=== PATIENT | male | born 1985 | race Caucasian/White ===

== ENCOUNTER 2021-04-13 22:27 | Observation (INO) ==
[2021-04-13] MEDS ORDERED: SODIUM CHLORIDE 0.9% 1000ML 1,000 ML IV STA (23:59)
[2021-04-13] MEDS ORDERED: ONDANSETRON INJ 2 MG/ML 2 ML VIAL IV STA (23:59)
[2021-04-13] MEDS ORDERED: KETOROLAC 30 MG/ML VIAL IV STA (23:59)
--- NOTE | 2021-04-14 00:03 | Emergency Department Note ---
History of Present Illness General Chief complaint: Abdominal Pain Stated complaint: ABD PAIN Time Seen by Provider: 04/13/21 23:54 History of Present Illness Maximum Pain Intensity: 7 35-year-old male who presents to the ED with a chief complaint of sharp pain in the epigastric and right upper quadrant. She also reports nausea and vomiting. Symptoms started around noon today. He states that he had some fried steak for lunch and also a bologna sandwich for dinner. He states that he has had similar symptoms in the past year once or twice. He never really had it thoroughly checked. 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 Denies any back pains. No urinary symptoms. No change in his bowels. No other complaints. Nothing makes his is worse. Home Medications Medication Instructions Recorded Confirmed Type hydrochlorothiazide 12.5 mg capsule 12.5 mg PO DAILY 04/13/21 04/13/21 History omeprazole 20 mg tablet,delayed 20 mg PO DAILY 04/13/21 04/13/21 History release Allergies Allergy/AdvReac Type Severity Reaction Status Date / Time No Known Allergies Allergy Unverified 04/13/21 23:28 Past Med/Surg History Social History Smoking Status: Never smoker Preferred Language: Armenian Feels Safe at Home: Yes Review of Systems A total of 10 systems reviewed and were otherwise negative Physical Exam Vital Signs Vital Signs - 24 hr 04/13/21 22:29 04/13/21 23:52 04/14/21 00:00 Temperature 36.5 C Temperature Source Temporal Artery Scan Pulse Rate 87 76 70 Pulse Rate [Apical] Pulse Rate from SpO2 Sensor 75 Respiratory Rate 18 18 15 Respiratory Effort / Characteristics Non-Labored Spontaneous Respiratory Depth Normal Respiratory Pattern Regular Blood Pressure 138/84 Blood Pressure [Right Arm] Blood Pressure Mean 102 Blood Pressure Mean [Right Arm] Blood Pressure Position Sitting Pulse Oximetry 95 99 98 Oxygen Delivery Method Room Air Sepsis Recent Fever Within 48 Hours No Sepsis New/Unexplained Change in Mental Status N/A Sepsis Action Taken by Nursing No Action Required 04/14/21 00:19 04/14/21 01:38 Temperature Temperature Source Pulse Rate 65 Pulse Rate [Apical] 72 Pulse Rate from SpO2 Sensor Respiratory Rate 17 16 Respiratory Effort / Characteristics Respiratory Depth Respiratory Pattern Blood Pressure Blood Pressure [Right Arm] 126/82 Blood Pressure Mean Blood Pressure Mean [Right Arm] 96 Blood Pressure Position Pulse Oximetry 98 97 Oxygen Delivery Method Room Air Sepsis Recent Fever Within 48 Hours Sepsis New/Unexplained Change in Mental Status Sepsis Action Taken by Nursing CONSTITUTIONAL/VITAL SIGNS: Reviewed / noted above. GENERAL: Non-toxic in appearance. INTEGUMENTARY: Warm, dry, and [place]. HEAD: Normocephalic. EYES: without scleral icterus or trauma. ENT/OROPHARYNX: clear and moist. LYMPHADENOPATHY/NECK: Is supple without lymphadenopathy or meningismus. RESPIRATORY: Clear to auscultation bilaterally. No increased work of breathing. CARDIOVASCULAR: Regular rate and rhythm. GI/ABDOMEN: Soft and tender in the epigastric and right upper quadrant. No organomegaly or pulsatile mass. EXTREMITIES: Warm and well perfused. BACK: No CVA tenderness. NEUROLOGICAL: Intact without focal deficits. PSYCHIATRIC: normal affect. MUSCULOSKELETAL: Normally developed with good muscle tone. TRIAGE NURSING DOCUMENTATION REVIEWED. Course Administered Medications Discontinued Medications Sodium Chloride (Nss 1000ml) 1,000 mls @ 999 mls/hr IV .Q1H1M STA Stop: 04/14/21 00:59 Last Infusion: 04/14/21 01:27 Dose: 0 mls/hr Documented by: [id number] Admin: 04/14/21 00:12 Dose: 999 mls/hr Documented by: [id number] Ketorolac Tromethamine (Ketorolac 30 Mg/Ml Vial) 30 mg IV NOW STA Stop: 04/14/21 00:00 Last Admin: 04/14/21 00:08 Dose: 30 mg Documented by: [id number] Ondansetron HCl (Ondansetron Inj 2 Mg/Ml 2 Ml Vial) 4 mg IV NOW STA Stop: 04/14/21 00:00 Last Admin: 04/14/21 00:09 Dose: 4 mg Documented by: [id number] Medical Decision Making Differential Diagnosis Differential considered: pancreatitis, hepatitis, acute cholecystitis, AAA, UTI, pyelonephritis, kidney stones, appendicitis, diverticulitis, shingles, bowel obstruction, mesenteric ischemia, intussusception,hernia, testicular torsion. Medical Records Attestation: I reviewed the patient's medical records. Home Medications Current Medication List: was personally reviewed by me Laboratory Data Attestation: I reviewed the patient's lab results. Result diagrams: 04/14/21 00:00 04/14/21 00:00 Lab Results 04/14/21 04/14/21 Range/Units 00:00 00:00 WBC 14.88 H (4.8-10.8) K/uL RBC 4.76 (4.7-6.1) M/uL Hgb 14.4 (14.0-18.0) g/dL Hct 42.6 (42-52) % MCV 89.5 (80-100) fL MCH 30.3 (25-34) pg MCHC 33.8 (32-36) g/dL RDW Std Deviation 41.7 (36.4-46.3) fL RDW Coeff of Rose Mary 12.6 (11.5-14.5) % Plt Count 317 (130-400) K/uL MPV 10.3 (7.4-10.4) fL Immature Gran % (Auto) 0.2 % Neut % (Auto) 91.8 % Lymph % (Auto) 5.4 % [place] % (Auto) 2.5 % Eos % (Auto) 0.0 % Baso % (Auto) 0.1 % Neut # (Auto) 13.66 H (1.4-6.5) K/uL Lymph # (Auto) 0.80 L (1.2-3.4) K/uL [place] # (Auto) 0.37 (0.11-0.59) K/uL Eos # (Auto) 0.00 (0-0.5) K/uL Baso # (Auto) 0.02 (0-0.2) K/uL Immature Gran # (Auto) 0.03 H (0.00-0.02) K/uL Sodium 137 (136-145) mmol/L Potassium 3.1 L (3.5-5.1) mmol/L Chloride 101 (98-107) mmol/L Carbon Dioxide 29 (21-32) mmol/L Anion Gap 7.0 (3-11) BUN 8 (7-18) mg/dl Creatinine 0.99 (0.6-1.4) mg/dl Est Cr Clr Drug Dosing Not Reportable Est GFR ( Amer) 114.7 ml/min Est GFR (Non-Af Amer) 99.0 ml/min BUN/Creatinine Ratio 8.4 L (10-20) Glucose 136 H (70-99) mg/dl Calcium 9.2 (8.5-10.1) mg/dl Total Bilirubin 0.7 (0.2-1) mg/dl AST 38 H (15-37) U/L ALT 53 (12-78) U/L Alkaline Phosphatase 76 (45-117) U/L Total Protein 8.5 H (6.4-8.2) gm/dl Albumin 4.3 (3.4-5.0) gm/dl Globulin 4.2 H (2.5-4.0) gm/dl Albumin/Globulin Ratio 1.0 (0.9-2) Lipase 72 L (73-393) U/L Imaging Data Radiologist's Impression: Per [facility]: There is a hydropic gallbladder with gallstones and sludge and a positive ultrasonic Diaz sign with associated pericholecystic fluid suggesting acute cholecystitis. MDM Narrative Patient presents to the ED with right upper quadrant of epigastric abdominal pain that started around noon today after eating some fried chicken. He had some associated nausea and vomiting. Vital signs are normal. The patient's white blood cell count was 14.8. Chemistry panel was unremarkable. Gallbladder ultrasound shows findings suggestive of acute cholecystitis. The patient was told the results. He was treated with IV fluids, IV Toradol and IV Zofran. He was also given IV Zosyn. I did speak with Dr. De La Garza from surgery. She will see the patient for further evaluation and care. Impression & Plan Acute calculous cholecystitis Discharge Plan Visit Data Chief Complaint: Abdominal Pain Stated Complaint: ABD PAIN ED Provider: Obie Ba Discharge Problem: Acute calculous cholecystitis Patient Disposition: Being Evaluated by Surgeon Forms Stand Alone Forms: My [facility] Prescriptions Prescriptions: No Action hydrochlorothiazide 12.5 mg Capsule 12.5 mg PO DAILY RF: 0 omeprazole 20 mg Tablet,Delayed Release (Dr/Ec) 20 mg PO DAILY RF: 0 Referrals Referrals: Mary Trejo [Primary Care Provider] -
[2021-04-14 00:17] LABS: Basophils # (auto) 0.02 K/uL (0-0.2); Basophils % (auto) 0.1 %; Hematocrit (blood only) 42.6 % (42-52); Hemoglobin 14.4 g/dL (14.0-18.0); Immature Granulocytes # (auto) 0.03 K/uL (0.00-0.02); Immature Granulocytes % (auto) 0.2 %; Lymphocytes % (auto) 5.4 %; Mean Corpuscular Hemoglobin 30.3 pg (25-34); Mean Corpuscular Hgb Conc 33.8 g/dL (32-36); Mean Corpuscular Volume 89.5 fL (80-100); Mean Platelet Volume 10.3 fL (7.4-10.4); Monocytes # (auto) 0.37 K/uL (0.11-0.59); Monocytes % (auto) 2.5 %; Neutrophils # (auto) 13.66 K/uL (1.4-6.5); Neutrophils % (auto) 91.8 %; Platelet Count 317 K/uL (130-400); RDW Coefficient of Variation 12.6 % (11.5-14.5); RDW Standard Deviation 41.7 fL (36.4-46.3); Red Blood Count 4.76 M/uL (4.7-6.1); White Blood Count 14.88 K/uL (4.8-10.8)
[2021-04-14 00:35] LABS: Alanine Aminotransferase 53 U/L (12-78); Albumin Level 4.3 gm/dl (3.4-5.0); Aspartate Aminotransferase 38 U/L (15-37); BUN Creatinine Ratio 8.4 (10-20); Blood Urea Nitrogen 8 mg/dl (7-18); Calcium 9.2 mg/dl (8.5-10.1); Carbon Dioxide 29 mmol/L (21-32); Chloride 101 mmol/L (98-107); Est GFR (African American) 114.7 ml/min; Glucose 136 mg/dl (70-99); Lipase 72 U/L (73-393); Potassium 3.1 mmol/L (3.5-5.1); Sodium 137 mmol/L (136-145)
[2021-04-14 00:38] LABS: Alkaline Phosphatase 76 U/L (45-117); Bilirubin,Total 0.7 mg/dl (0.2-1); Globulin 4.2 gm/dl (2.5-4.0); Total Protein 8.5 gm/dl (6.4-8.2)
[2021-04-14] MEDS ORDERED: PIPERACILL/TAZOBAC CONSULT ACTIVE PRN (01:52)
[2021-04-14] MEDS ORDERED: PIPERACILLIN/TAZOBACTAM 4.5 GM/120 ML BAG IV ONE (01:52)
[2021-04-14] MEDS ORDERED: ONDANSETRON INJ 2 MG/ML 2 ML VIAL IV STA (04:00)
[2021-04-14] MEDS ORDERED: ONDANSETRON INJ 2 MG/ML 2 ML VIAL IV PRN ×2 (04:55→10:08)
[2021-04-14] MEDS ORDERED: oxyCODONE/ACETAMINOPHEN 5mg/325mg TAB PO PRN (04:55)
[2021-04-14] MEDS ORDERED: MoRPHine SULFATE 4 MG/ML 1 ML CARP\\VIAL IV PRN (04:55)
[2021-04-14] MEDS ORDERED: MoRPHine SULFATE 2 MG/ML CARP IV PRN (04:55)
[2021-04-14] MEDS: LACTATED RINGER'S 1,000 ML IV SCH ×2 (05:22→15:12)
--- NOTE | 2021-04-14 07:07 | Ultrasound Report ---
ULTRASOUND RIGHT UPPER QUADRANT ABDOMEN CLINICAL HISTORY: Right upper quadrant abdominal pain. Vomiting. COMPARISON STUDY: No priors. TECHNIQUE: Real-time, grayscale, and color flow sonography of the right upper quadrant of the abdomen was performed. Images are reviewed in the transverse and longitudinal planes. FINDINGS: Liver: The liver is enlarged and demonstrates heterogeneously increased echotexture consistent with h epatic steatosis. There is no intrahepatic biliary ductal dilatation. The main portal vein is patent. Gallbladder: The gallbladder is distended. There is biliary sludge and gallstones. The gallbladder wa ll is thickened and edematous measuring up to 5 mm, with trace pericholecystic fluid. A sonographic M urphy's sign is reportedly present. Foci of adenomyomatosis are suggested. The common bile duct measu res up to 0.5 cm in diameter. Pancreas: Visualized portions of the pancreatic head are normal in appearance. The majority of the pa ncreas was not visualized due to overlying bowel gas. Right kidney: Survey images of the right kidney demonstrate normal size and echotexture. There is no hydronephrosis. Ascites: None. IMPRESSION: 1. Cholelithiasis and biliary sludge with sonographic evidence of acute cholecystitis. Surgical consu ltation is advised. 2. Hepatomegaly and hepatic steatosis. ACT 112: Negative or not required by law. Electronically signed by: Adan Treadwell M.D. 04/14/2021 7:06 AM
[2021-04-14] MEDS: AMPICILLIN/SULBACTAM SOD 3,000 MG in 0.9 % SODIUM CHLORIDE 100 ML IV SCH ×3 (07:34→20:14)
--- NOTE | 2021-04-14 08:00 | History & Physical Report ---
Date of Service April 14, 2021 Assessment & Plan (1) Acute calculous cholecystitis: Plan: 35-year-old gentleman with acute cholecystitis. I discussed with him the risks and benefits of a laparoscopic, possible open cholecystectomy. Risks include: Bleeding, infection, injury to the surrounding structures including the common bile duct, leak, obstruction, diarrhea. We reviewed alternative treatments such as observation or antibiotics. All his questions were answered, and he is agreeable to proceed with laparoscopic cholecystectomy. We will take him to the operating room at the earliest convenience. Admission and Anticipated Discharge Date Admission Date: April 14, 2021 History of Present Illness Chief Complaint: Right upper quadrant pain, nausea, vomiting Primary Care Provider: [facility] 35-year-old man with multiple episodes of right upper quadrant pain and nausea in the past few weeks. Yesterday he developed right upper quadrant pain which is subsequently worsened to a 7 out of 10 after eating dinner. He states that the pain radiates to his back and right shoulder. This was accompanied by nausea and vomiting. He did have sweats and chills. He denies acholic stools, dark urine, pruritus. In the emergency room, white blood cell count is elevated, and ultrasound demonstrates signs of acute cholecystitis. Allergies Allergy/AdvReac Type Severity Reaction Status Date / Time No Known Allergies Allergy Unverified 04/13/21 23:28 Home Medications Medication Instructions Recorded Confirmed Type hydrochlorothiazide 12.5 mg capsule 12.5 mg PO DAILY 04/13/21 04/13/21 History omeprazole 20 mg tablet,delayed 20 mg PO DAILY 04/13/21 04/13/21 History release Past Med/Surg History Social History Smoking Status: Former smoker Second Hand Exposure: No; Do You Dip or Chew Tobacco: No; Tobacco Cessation Education Requested by Patient: No Hx Alcohol Use: No Hx Substance Use: No Preferred Language: Serbian Communication Ability: Effective Beliefs That Will Affect Care: None Current Living Situation: Other Current Living Situation Comment: [place] Feels Safe at Home: Yes Safety Concerns: Feels Safe At This Time Assistive Devices: Glasses Review of Systems Review of Systems: All systems reviewed & are unremarkable except as noted in Subjective Physical Exam Constitutional: WD/WN, vitals as above Eyes: PERRL, conjunctivae normal, anicteric sclerae Neck: trachea midline, no thyromegaly Respiratory: normal respiratory effort, lungs clear to auscultation Cardiovascular: RRR, no murmur, no edema Gastrointestinal (Abdomen): Inspection/Auscultation: abdomen normal to inspection Percussion/Palpation: + abdomen tender (Right upper quadrant/epigastrium) and abdomen soft; no guarding and abdomen not rigid Musculoskeletal: Extremities: no cyanosis and no clubbing Skin: no rashes, warm and dry Psychiatric: A+Ox3, euthymic affect Results & Data Results & Data ([facility]) Vital Signs (Past 12 Hours) Vital Signs Temp Pulse Pulse Pulse Pulse Resp BP 04/14/21 07:08 37.2 C 84 16 04/14/21 04:58 36.8 C 81 82 18 04/14/21 04:00 79 20 133/85 04/14/21 03:31 86 12 161/82 H 04/14/21 03:01 72 16 142/94 H 04/14/21 02:30 85 16 118/98 04/14/21 02:04 36.7 C 04/14/21 02:00 101 H 13 119/82 04/14/21 01:38 72 16 04/14/21 01:36 85 18 04/14/21 00:19 65 17 04/14/21 00:00 70 15 04/13/21 23:52 76 18 04/13/21 22:29 36.5 C 87 18 138/84 BP Pulse Ox 04/14/21 07:08 144/84 H 95 04/14/21 04:58 165/94 H 95 04/14/21 04:00 94 04/14/21 03:31 99 04/14/21 03:01 99 04/14/21 02:30 97 04/14/21 02:04 04/14/21 02:00 97 04/14/21 01:38 126/82 97 04/14/21 01:36 98 04/14/21 00:19 98 04/14/21 00:00 98 04/13/21 23:52 99 04/13/21 22:29 95 Laboratory Results 04/14/21 04/14/21 04/14/21 Range/Units 05:47 02:06 02:06 WBC (4.8-10.8) K/uL RBC (4.7-6.1) M/uL Hgb (14.0-18.0) g/dL Hct (42-52) % MCV (80-100) fL MCH (25-34) pg MCHC (32-36) g/dL RDW Std Deviation (36.4-46.3) fL RDW Coeff of Rose Mary (11.5-14.5) % Plt Count (130-400) K/uL MPV (7.4-10.4) fL Immature Gran % (Auto) % Neut % (Auto) % Lymph % (Auto) % [place] % (Auto) % Eos % (Auto) % Baso % (Auto) % Neut # (Auto) (1.4-6.5) K/uL Lymph # (Auto) (1.2-3.4) K/uL [place] # (Auto) (0.11-0.59) K/uL Eos # (Auto) (0-0.5) K/uL Baso # (Auto) (0-0.2) K/uL Immature Gran # (Auto) (0.00-0.02) K/uL Sodium (136-145) mmol/L Potassium (3.5-5.1) mmol/L Chloride (98-107) mmol/L Carbon Dioxide (21-32) mmol/L Anion Gap (3-11) BUN (7-18) mg/dl Creatinine (0.6-1.4) mg/dl Est Cr Clr Drug Dosing Est GFR ( Amer) ml/min Est GFR (Non-Af Amer) ml/min BUN/Creatinine Ratio (10-20) Glucose (70-99) mg/dl Calcium (8.5-10.1) mg/dl Total Bilirubin (0.2-1) mg/dl AST (15-37) U/L ALT (12-78) U/L Alkaline Phosphatase (45-117) U/L Total Protein (6.4-8.2) gm/dl Albumin (3.4-5.0) gm/dl Globulin (2.5-4.0) gm/dl Albumin/Globulin Ratio (0.9-2) Lipase (73-393) U/L Nasal Screen MRSA (PCR) Positive A (Negative) COVID-19 Eval Order Covid19 at [facility] SARS-CoV-2 (PCR) NEGATIVE (Negative) 04/14/21 04/14/21 Range/Units 00:00 00:00 WBC 14.88 H (4.8-10.8) K/uL RBC 4.76 (4.7-6.1) M/uL Hgb 14.4 (14.0-18.0) g/dL Hct 42.6 (42-52) % MCV 89.5 (80-100) fL MCH 30.3 (25-34) pg MCHC 33.8 (32-36) g/dL RDW Std Deviation 41.7 (36.4-46.3) fL RDW Coeff of Rose Mray 12.6 (11.5-14.5) % Plt Count 317 (130-400) K/uL MPV 10.3 (7.4-10.4) fL Immature Gran % (Auto) 0.2 % Neut % (Auto) 91.8 % Lymph % (Auto) 5.4 % [place] % (Auto) 2.5 % Eos % (Auto) 0.0 % Baso % (Auto) 0.1 % Neut # (Auto) 13.66 H (1.4-6.5) K/uL Lymph # (Auto) 0.80 L (1.2-3.4) K/uL [place] # (Auto) 0.37 (0.11-0.59) K/uL Eos # (Auto) 0.00 (0-0.5) K/uL Baso # (Auto) 0.02 (0-0.2) K/uL Immature Gran # (Auto) 0.03 H (0.00-0.02) K/uL Sodium 137 (136-145) mmol/L Potassium 3.1 L (3.5-5.1) mmol/L Chloride 101 (98-107) mmol/L Carbon Dioxide 29 (21-32) mmol/L Anion Gap 7.0 (3-11) BUN 8 (7-18) mg/dl Creatinine 0.99 (0.6-1.4) mg/dl Est Cr Clr Drug Dosing Not Reportable Est GFR ( Amer) 114.7 ml/min Est GFR (Non-Af Amer) 99.0 ml/min BUN/Creatinine Ratio 8.4 L (10-20) Glucose 136 H (70-99) mg/dl Calcium 9.2 (8.5-10.1) mg/dl Total Bilirubin 0.7 (0.2-1) mg/dl AST 38 H (15-37) U/L ALT 53 (12-78) U/L Alkaline Phosphatase 76 (45-117) U/L Total Protein 8.5 H (6.4-8.2) gm/dl Albumin 4.3 (3.4-5.0) gm/dl Globulin 4.2 H (2.5-4.0) gm/dl Albumin/Globulin Ratio 1.0 (0.9-2) Lipase 72 L (73-393) U/L Nasal Screen MRSA (PCR) (Negative) COVID-19 Eval Order SARS-CoV-2 (PCR) (Negative) Code Status & VTE Plan VTE Prophylaxis Plan VTE Prophylaxis will be ordered: Yes
[2021-04-14] MEDS: hydroCHLOROthiazide 25 MG TAB PO SCH (08:15)
[2021-04-14] MEDS: PANTOprazole 40 MG TAB PO SCH (08:15)
[2021-04-14] MEDS ORDERED: PROMETHAZINE HCL 6.25 MG in SODIUM CHLORIDE 0.9% 50 ML IV PRN (10:08)
[2021-04-14] MEDS ORDERED: ATROPINE SULFATE 0.1 MG/ML 10ML SYR IV PRN (10:08)
[2021-04-14] MEDS ORDERED: ePHEDrine sulfate 50 MG/ML AMP IV PRN (10:08)
--- NOTE | 2021-04-14 10:08 | Anesthesiology Consultation ---
Date of Service April 14, 2021 Assessment & Plan (1) Encounter for pre-operative examination: Chart Review Chart Review: Acceptable Risk for Surgery and Patient NOT seen in Pre Admission Testing Consults Requested none ASA ASA2 Proposed Anesthesia Anesthesia Type: General Risk / Benefits Reviewed With: PT / POA / Parent / Guardian, Accepts Plan and Informed Consent Obtained History Surgery Operation Date: 04/14/21 07:00 Proposed Procedures p Laparoscopic Cholecystectomy - Augustine Starks MD Height/Weight Height: 6 ft 1 in Weight: 126.9 kg Allergies Allergy/AdvReac Type Severity Reaction Status Date / Time No Known Allergies Allergy Unverified 04/13/21 23:28 Medications Home Medications Medication Instructions Recorded Confirmed Last Taken hydrochlorothiazide 12.5 mg capsule 12.5 mg PO DAILY 04/13/21 04/13/21 Unknown omeprazole 20 mg tablet,delayed 20 mg PO DAILY 04/13/21 04/13/21 Unknown release Active Medications Generic Name Dose Route Start Last Admin Trade Name Freq PRN Reason Stop Dose Admin Hydrochlorothiazide 12.5 mg 04/14/21 09:00 04/14/21 08:15 Hydrochlorothiazide 25 Mg Tab PO 05/14/21 08:59 Not Given DAILY MAISHA Lactated Ringer's 1,000 mls @ 100 mls/hr 04/14/21 04:55 04/14/21 05:22 Lr IV 05/14/21 04:54 100 mls/hr .Q10H MAISHA Administration Ampicillin Sodium/Sulbactam 108 mls @ 200 mls/hr 04/14/21 08:00 04/14/21 08:15 Sodium 3,000 mg/ Sodium IV 04/24/21 07:59 Infused Chloride Q6H MAISHA Infusion Protocol Pantoprazole Sodium 40 mg 04/14/21 09:00 04/14/21 08:15 Pantoprazole 40 Mg Tab PO 05/14/21 08:59 Not Given DAILY MAISHA NPO Date Last Intake of Fluids: 04/13/21 Time Last Intake of Fluids: 19:00 Date Last Intake of Solids: 04/13/21 Time Last Intake of Solids: 17:00 Exercise / Class Metabolic Activity II 4-5 Yardwork/Stairs/Walk up hill Past Anesthesia History No Hx of Anesthesia Complications and No Family Hx of Anesthesia Complications History of PONV No Hx of PONV and No Hx of Motion Sickness Social History Smoking Status: Former smoker tobacco type: cigarettes Do You Dip or Chew Tobacco: No Hx Alcohol Use: No Hx Substance Use: No Physical Exam Vital Signs Last Vital Signs Temp 37.4 C 04/14/21 09:31 Pulse 89 04/14/21 09:31 Resp 20 04/14/21 09:31 BP 142/98 H 04/14/21 09:31 Pulse Ox 95 04/14/21 09:31 Constitutional + obese ENMT Mouth: no dentition abnormality Thyromental Distance: > or= 3.5 Finger Breadths Mallampati Class: II Neck normal visual inspection Respiratory normal respiratory effort Auscultation: lungs clear to auscultation bilaterally Cardiovascular Rate/Rhythm: regular rate and regular rhythm Psychiatric Orientation: alert Testing Laboratory Results 04/14/21 00:00 04/14/21 00:00
[2021-04-14] MEDS ORDERED: MIDAZOLAM HCL 1 MG/ML 2ML VIAL ONE (10:17)
[2021-04-14] MEDS ORDERED: DEXAMETHASONE SOD INJ 4 MG/ML VIAL ONE (10:17)
[2021-04-14] MEDS ORDERED: LIDOCAINE 2% 2 ML VIAL/AMP(20MG/ML) INFIL ONE (10:17)
[2021-04-14] MEDS ORDERED: ONDANSETRON INJ 2 MG/ML 2 ML VIAL ONE ×2 (10:17→12:53)
[2021-04-14] MEDS ORDERED: fentaNYL citrate 100 MCG/2 ML VIAL ONE ×2 (10:17→11:22)
[2021-04-14] MEDS ORDERED: PROPOFOL IV EMULSION 10 MG/ML 20 ML VIAL IV ONE (10:17)
[2021-04-14] MEDS ORDERED: ACETAMINOPHEN 1000 MG/100 ML IV IV ONE (10:19)
[2021-04-14] MEDS ORDERED: EPINEPHrine INJ 1 MG/ML AMP ONE (10:20)
[2021-04-14] MEDS ORDERED: BUPIVACAINE 0.25% 30 ML VIAL ONE (10:20)
[2021-04-14] MEDS ORDERED: ROCURONIUM BROMIDE 10 MG/ML 5 ML VIAL IV ONE ×2 (11:22)
[2021-04-14] MEDS ORDERED: HYDROmorphone INJ 2 MG/ML SYR/VIAL ONE (11:23)
[2021-04-14] MEDS ORDERED: NEOSTIGMINE METHYLSULFATE 1 MG/ML 10ML VIAL ONE (12:51)
[2021-04-14] MEDS ORDERED: GLYCOPYRROLATE 0.2 MG/ML VIAL ONE (12:51)
--- NOTE | 2021-04-14 12:53 | Post Operative Brief Note ---
Immediate Post Op Note v1 Date of Surgery April 14, 2021 Pre & Post Diagnosis Operation Date: 04/14/21 07:00 Pre-Op Diagnosis: Acute Cholecystitis Post-Op Diagnosis: Acute Cholecystitis I identified the patient and participated in the time-out.: Yes Procedure Operation Date: 04/14/21 07:00 Actual Procedures p Laparoscopic Cholecystectomy(Not Applicable) - Augustine Starks MD Surgeon Augustine Starks MD Audit Analyst Jeannette Munoz; assisted in tissue retraction; camera op, and closure Estimated Blood Loss 20 Findings Consistent with Post-Op Diagnosis Drains [place] Drain (10Fr flat KYLE drain)
--- NOTE | 2021-04-14 13:02 | Operative Report ---
Post Operative Report Pre & Post Diagnosis Operation Date: 04/14/21 07:00 Pre-Op Diagnosis: Acute Cholecystitis Post-Op Diagnosis: Acute Cholecystitis I identified the patient and participated in the time-out.: Yes Procedure Operation Date: 04/14/21 07:00 Actual Procedures p Laparoscopic Cholecystectomy(Not Applicable) - Augustine Starks MD Surgeon Augustine Starks MD Tire Fixer Jeannette Munoz; assisted in tissue retraction; camera op, and closure Estimated Blood Loss 20 Findings Consistent with Post-Op Diagnosis Severe acute gangrenous cholecystitis with significant amount of adhesions to the gallbladder. The gallbladder was intrahepatic. Specimens Gallbladder Drains 10 [place] flat KYLE drain Anesthesia Type General Complications No immediate complications Indications Acute cholecystitis Description of Procedure The patient was taken to the operating room, and placed supine on the operating table. A timeout was performed, perioperative antibiotics were administered, SCD boots were placed. After adequate anesthesia and analgesia was obtained, the abdomen was prepped and draped in the normal sterile fashion. Local anesthetic was injected into and around the proposed incision sites. An incision was made with a 15 blade scalpel in the supraumbilical region and carried down to the level of the fascia. The fascia was grasped with a trach hook, and a varies needle was used to enter the abdominal cavity. The abdomen was insufflated to a pressure of 15 mmHg, and a 11 mm trocar was placed in this location. A 10 mm, 30 degree laparoscope was placed into the abdominal cavity, and the abdomen was surveyed. The gallbladder was distended with a significant inflammatory reaction surrounding it. Omentum was adhesed to the gallbladder. There is severe acute edema and inflammation. There was bilious type fluid in the right upper quadrant. Two 5 mm trochars were placed along the right costal margin, and one 5 mm trocar was placed in the subxiphoid region under direct visualization. The gallbladder was grasped and retracted cephalad and laterally. It was drained of bile with an 18-gauge aspiration needle. The omental adhesions were slowly taken down with a combination of blunt dissection and judicious use of the electrocautery. There was severe acute inflammation with significant edema and bleeding. I was able to dissect down towards the triangle. The cystic artery was clearly identified dissected and clipped and transected. Dissection continued in the triangle with a combination of blunt dissection with the [place] dissector, and judicious use of the hook cautery. The cystic duct was dissected free circumferentially, and a critical view of safety was obtained. The cystic duct was clipped and transected. An additional Endoloop was placed onto the fairly inflamed cystic duct for further closure. The gallbladder was removed from the gallbladder fossa with the hook cautery. The gallbladder was very intrahepatic, and there was a significant amount of chronic inflammation as well as the acute inflammation. 1 bleeder was clipped with a 5 mm clip. The camera was switched to a 5 mm, the gallbladder was placed in an Endo Catch bag, and removed via the supraumbilical port site. The camera was switched back to the 10 mm camera, and the abdomen was surveyed again. Hemostasis was checked and attended, and was excellent. The abdomen was copiously irrigated and suctioned free. Again hemostasis was checked and was excellent. A 10 [place] round KYLE drain was placed through the lateral incision and was secured with a 4- 0 nylon suture. All trochars were removed under direct visualization. The abdomen was desufflated. The fascia in the 11 mm port site was closed with a 0 Vicryl suture. The skin was closed with a running 4-0 Monocryl subcuticular stitch. Dermabond was applied. The patient tolerated the procedure without complication, and was transferred in stable condition to the PACU. All instrument, needle, and sponge counts were correct at the end of the case. I attest to the content of the Intraoperative Record and any orders documented t herein. Any exceptions are noted below.
[2021-04-14] MEDS ORDERED: KETOROLAC 30 MG/ML VIAL ONE (13:03)
--- NOTE | 2021-04-14 13:18 | Anesthesiology Progress Note ---
Date of Service April 14, 2021 Anesthesia Post Procedure Vital Signs Vital Signs: Temp Pulse Pulse Pulse Pulse Resp BP 04/14/21 09:31 37.4 C 89 20 04/14/21 07:08 37.2 C 84 16 04/14/21 04:58 36.8 C 81 82 18 04/14/21 04:00 79 20 133/85 04/14/21 03:31 86 12 161/82 H 04/14/21 03:01 72 16 142/94 H 04/14/21 02:30 85 16 118/98 04/14/21 02:04 36.7 C 04/14/21 02:00 101 H 13 119/82 04/14/21 01:38 72 16 04/14/21 01:36 85 18 04/14/21 00:19 65 17 04/14/21 00:00 70 15 04/13/21 23:52 76 18 04/13/21 22:29 36.5 C 87 18 138/84 BP Pulse Ox 04/14/21 09:31 142/98 H 95 04/14/21 07:08 144/84 H 95 04/14/21 04:58 165/94 H 95 04/14/21 04:00 94 04/14/21 03:31 99 04/14/21 03:01 99 04/14/21 02:30 97 04/14/21 02:04 04/14/21 02:00 97 04/14/21 01:38 126/82 97 04/14/21 01:36 98 04/14/21 00:19 98 04/14/21 00:00 98 04/13/21 23:52 99 04/13/21 22:29 95 Transfer of Care Handoff Completed per policy Notes Mental Status: alert / awake / arousable Patient Amnestic to Procedure: Yes Nausea / Vomiting: adequately controlled Pain: adequately controlled Airway Patency, RR, SpO2: stable & adequate BP & HR: stable & adequate Hydration State: stable & adequate Anesthetic Complications: no major complications apparent
[2021-04-14] MEDS: fentaNYL citrate 100 MCG/2 ML VIAL IV PRN ×2 (13:39→13:44)
[2021-04-14] MEDS ORDERED: diphenhydrAMINE 50 MG/ML VIAL IV PRN (14:17)
[2021-04-14] MEDS: oxyCODONE/ACETAMINOPHEN 5mg/325mg TAB PO PRN (20:14)
[2021-04-15] MEDS: LACTATED RINGER'S 1,000 ML IV SCH (01:24)
[2021-04-15] MEDS: AMPICILLIN/SULBACTAM SOD 3,000 MG in 0.9 % SODIUM CHLORIDE 100 ML IV SCH ×4 (01:24→19:57)
[2021-04-15] MEDS: oxyCODONE/ACETAMINOPHEN 5mg/325mg TAB PO PRN ×4 (01:29→20:01)
[2021-04-15 06:34] LABS: Basophils # (auto) 0.01 K/uL (0-0.2); Basophils % (auto) 0.1 %; Eosinophils # (auto) 0.08 K/uL (0-0.5); Eosinophils % (auto) 0.8 %; Hematocrit (blood only) 37.5 % (42-52); Hemoglobin 12.4 g/dL (14.0-18.0); Immature Granulocytes # (auto) 0.02 K/uL (0.00-0.02); Immature Granulocytes % (auto) 0.2 %; Lymphocytes # (auto) 1.91 K/uL (1.2-3.4); Lymphocytes % (auto) 18.9 %; Mean Corpuscular Hgb Conc 33.1 g/dL (32-36); Mean Corpuscular Volume 90.8 fL (80-100); Monocytes # (auto) 0.73 K/uL (0.11-0.59); Monocytes % (auto) 7.2 %; Neutrophils # (auto) 7.38 K/uL (1.4-6.5); Neutrophils % (auto) 72.8 %; Platelet Count 261 K/uL (130-400); RDW Coefficient of Variation 13.1 % (11.5-14.5); RDW Standard Deviation 43.6 fL (36.4-46.3); Red Blood Count 4.13 M/uL (4.7-6.1); White Blood Count 10.13 K/uL (4.8-10.8)
[2021-04-15 07:08] LABS: Albumin Level 2.9 gm/dl (3.4-5.0); BUN Creatinine Ratio 9.2 (10-20); Bilirubin Direct 0.3 mg/dl (0-0.2); Calcium 8.3 mg/dl (8.5-10.1); Est GFR (African American) 131.8 ml/min; Est GFR (Non-African American) 113.7 ml/min; Potassium 3.1 mmol/L (3.5-5.1)
[2021-04-15 07:13] LABS: Total Protein 6.5 gm/dl (6.4-8.2)
--- NOTE | 2021-04-15 08:14 | Surgery Progress Note ---
Date of Service April 15, 2021 Assessment & Plan (1) Acute calculous cholecystitis: Plan: POD # 1 s/p laparoscopic cholecystectomy, gangrenous acute cholecystitis Avss no leukocytosis t.bili and lfts wnl, d. bili slightly elevated drain with serosanguineous output, 50 cc last shift postop pain controlled Plan: continue reg diet continue po pain management as needed discontinue IV fluids IV antibiotics to be discontinued on discharge zaira drain to bulb suction possible discharge this afternoon Discussed with Dr. Starks who is to evaluate patient later today. Admission and Anticipated Discharge Date Admission Date: April 14, 2021 Subjective feeling good minimal postop pain, controlled with Percocet no nausea or vomiting no shortness of breath or chest pain Physical Exam Constitutional: WD/WN, vitals as above no acute distress and not ill a ppearing Respiratory: normal respiratory effort, lungs clear to auscultation Cardiovascular: RRR, no murmur, no edema Gastrointestinal (Abdomen): Inspection/Auscultation: abdomen normal to inspection, + abdominal surgical incision (clean, dry and intact with dermabond present.) and + abdominal surgical drain present (serosanguineous); abdomen not distended Percussion/Palpation: + abdomen tender (minimal tenderness at incision sites and RUQ drain site) Skin: no rashes, warm and dry Psychiatric: Orientation: alert and oriented x 3 Results & Data ([facility]) Vital Signs (Past 12 Hours) Vital Signs Temp Pulse Resp BP Pulse Ox 04/15/21 07:42 37 C 74 16 113/68 93 04/15/21 03:54 36.9 C 75 16 119/75 94 04/14/21 22:32 36.9 C 76 18 121/74 93 04/14/21 20:12 37.2 C 90 17 119/72 94 Laboratory Results 04/15/21 04/15/21 Range/Units 06:13 06:13 WBC 10.13 (4.8-10.8) K/uL RBC 4.13 L (4.7-6.1) M/uL Hgb 12.4 L (14.0-18.0) g/dL Hct 37.5 L (42-52) % MCV 90.8 (80-100) fL MCH 30.0 (25-34) pg MCHC 33.1 (32-36) g/dL RDW Std Deviation 43.6 (36.4-46.3) fL RDW Coeff of [place] Mary 13.1 (11.5-14.5) % Plt Count 261 (130-400) K/uL MPV 10.0 (7.4-10.4) fL Immature Gran % (Auto) 0.2 % Neut % (Auto) 72.8 % Lymph % (Auto) 18.9 % [place] % (Auto) 7.2 % Eos % (Auto) 0.8 % Baso % (Auto) 0.1 % Neut # (Auto) 7.38 H (1.4-6.5) K/uL Lymph # (Auto) 1.91 (1.2-3.4) K/uL [place] # (Auto) 0.73 H (0.11-0.59) K/uL Eos # (Auto) 0.08 (0-0.5) K/uL Baso # (Auto) 0.01 (0-0.2) K/uL Immature Gran # (Auto) 0.02 (0.00-0.02) K/uL Sodium 137 (136-145) mmol/L Potassium 3.1 L (3.5-5.1) mmol/L Chloride 102 (98-107) mmol/L Carbon Dioxide 28 (21-32) mmol/L Anion Gap 7.0 (3-11) BUN 8 (7-18) mg/dl Creatinine 0.85 (0.6-1.4) mg/dl Est Cr Clr Drug Dosing 171.0 ml/min Est GFR ( Amer) 131.8 ml/min Est GFR (Non-Af Amer) 113.7 ml/min BUN/Creatinine Ratio 9.2 L (10-20) Glucose 96 (70-99) mg/dl Calcium 8.3 L (8.5-10.1) mg/dl Total Bilirubin 1.0 (0.2-1) mg/dl Direct Bilirubin 0.3 H (0-0.2) mg/dl AST 51 H (15-37) U/L ALT 52 (12-78) U/L Alkaline Phosphatase 54 (45-117) U/L Total Protein 6.5 D (6.4-8.2) gm/dl Albumin 2.9 L (3.4-5.0) gm/dl
[2021-04-15] MEDS: PANTOprazole 40 MG TAB PO SCH (08:32)
[2021-04-15] MEDS: hydroCHLOROthiazide 25 MG TAB PO SCH (08:32)
[2021-04-16] MEDS: AMPICILLIN/SULBACTAM SOD 3,000 MG in 0.9 % SODIUM CHLORIDE 100 ML IV SCH ×2 (01:28→08:58)
[2021-04-16 06:59] LABS: Basophils # (auto) 0.04 K/uL (0-0.2); Basophils % (auto) 0.4 %; Eosinophils # (auto) 0.26 K/uL (0-0.5); Eosinophils % (auto) 2.6 %; Hematocrit (blood only) 36.4 % (42-52); Hemoglobin 12.1 g/dL (14.0-18.0); Immature Granulocytes # (auto) 0.02 K/uL (0.00-0.02); Immature Granulocytes % (auto) 0.2 %; Lymphocytes # (auto) 2.24 K/uL (1.2-3.4); Mean Corpuscular Hemoglobin 29.4 pg (25-34); Mean Corpuscular Hgb Conc 33.2 g/dL (32-36); Mean Corpuscular Volume 88.6 fL (80-100); Mean Platelet Volume 9.9 fL (7.4-10.4); Monocytes # (auto) 0.88 K/uL (0.11-0.59); Monocytes % (auto) 8.6 %; Neutrophils # (auto) 6.75 K/uL (1.4-6.5); Neutrophils % (auto) 66.2 %; Platelet Count 236 K/uL (130-400); RDW Standard Deviation 42.7 fL (36.4-46.3); Red Blood Count 4.11 M/uL (4.7-6.1); White Blood Count 10.19 K/uL (4.8-10.8)
--- NOTE | 2021-04-16 07:15 | Surgery Progress Note ---
Date of Service April 16, 2021 Assessment & Plan (1) Acute calculous cholecystitis: Plan: POD # 2 s/p laparoscopic cholecystectomy, gangrenous acute cholecystitis Avss no leukocytosis drain with min serosanguineous output postop pain controlled Plan: continue reg diet continue po pain management as needed d/c KYLE drain D/C later today f/u 2 weeks Admission and Anticipated Discharge Date Admission Date: April 14, 2021 Subjective feeling good minimal postop pain, controlled with Percocet no nausea or vomiting no shortness of breath or chest pain Physical Exam Constitutional: WD/WN, vitals as above Eyes: PERRL, conjunctivae normal, anicteric sclerae Gastrointestinal (Abdomen): Inspection/Auscultation: abdomen normal to inspection, + abdominal surgical incision (healing well with dermabond) and + abdominal surgical drain present (scant serosanguinous drainage); abdomen not distended Percussion/Palpation: abdomen soft; abdomen nontender, no guarding and abdomen not rigid Musculoskeletal: Extremities: no cyanosis and no clubbing Skin: no rashes, warm and dry Psychiatric: A+Ox3, euthymic affect Results & Data ([facility]) Vital Signs (Past 12 Hours) Vital Signs Temp Pulse Resp BP Pulse Ox 04/15/21 22:17 37.1 C 85 16 121/71 92 Laboratory Results 04/16/21 04/16/21 04/15/21 Range/Units 06:20 06:20 06:13 WBC 10.19 (4.8-10.8) K/uL RBC 4.11 L (4.7-6.1) M/uL Hgb 12.1 L (14.0-18.0) g/dL Hct 36.4 L (42-52) % MCV 88.6 (80-100) fL MCH 29.4 (25-34) pg MCHC 33.2 (32-36) g/dL RDW Std Deviation 42.7 (36.4-46.3) fL RDW Coeff of Rose Mary 13.0 (11.5-14.5) % Plt Count 236 (130-400) K/uL MPV 9.9 (7.4-10.4) fL Immature Gran % (Auto) 0.2 % Neut % (Auto) 66.2 % Lymph % (Auto) 22.0 % [place] % (Auto) 8.6 % Eos % (Auto) 2.6 % Baso % (Auto) 0.4 % Neut # (Auto) 6.75 H (1.4-6.5) K/uL Lymph # (Auto) 2.24 (1.2-3.4) K/uL [place] # (Auto) 0.88 H (0.11-0.59) K/uL Eos # (Auto) 0.26 (0-0.5) K/uL Baso # (Auto) 0.04 (0-0.2) K/uL Immature Gran # (Auto) 0.02 (0.00-0.02) K/uL Sodium Pending Potassium Pending Chloride Pending Carbon Dioxide Pending Anion Gap Pending BUN Pending Creatinine Pending Est Cr Clr Drug Dosing Pending Est GFR ( Amer) Pending Est GFR (Non-Af Amer) Pending BUN/Creatinine Ratio Pending Glucose Pending Calcium Pending Total Bilirubin Pending 1.0 (0.2-1) mg/dl Direct Bilirubin Pending AST Pending ALT Pending Alkaline Phosphatase Pending 54 (45-117) U/L Total Protein Pending 6.5 D (6.4-8.2) gm/dl Albumin Pending
[2021-04-16 07:36] LABS: Albumin Level 2.8 gm/dl (3.4-5.0); BUN Creatinine Ratio 6.7 (10-20); Bilirubin Direct 0.2 mg/dl (0-0.2); Calcium 8.5 mg/dl (8.5-10.1); Creatinine Clr Calc Pharmacy 163.3 ml/min; Est GFR (African American) 129.3 ml/min; Est GFR (Non-African American) 111.6 ml/min
[2021-04-16 07:39] LABS: Bilirubin,Total 0.7 mg/dl (0.2-1); Total Protein 6.5 gm/dl (6.4-8.2)
[2021-04-16] MEDS: hydroCHLOROthiazide 25 MG TAB PO SCH (08:57)
[2021-04-16] MEDS: PANTOprazole 40 MG TAB PO SCH (08:58)
--- NOTE | 2021-04-17 12:47 | Discharge Summary ---
Date of Service April 17, 2021 Admission HPI Per Admitting Provider 35-year-old man with multiple episodes of right upper quadrant pain and nausea in the past few weeks. Yesterday he developed right upper quadrant pain which is subsequently worsened to a 7 out of 10 after eating dinner. He states that the pain radiates to his back and right shoulder. This was accompanied by nausea and vomiting. He did have sweats and chills. He denies acholic stools, dark urine, pruritus. In the emergency room, white blood cell count is elevated, and ultrasound demonstrates signs of acute cholecystitis. Principal Diagnosis Acute cholecystitis Discharge Data Allergies Allergy/AdvReac Type Severity Reaction Status Date / Time No Known Allergies Allergy Unverified 04/13/21 23:28 Procedures Performed Operation Date: 04/14/21 07:00 Actual Procedures p Laparoscopic Cholecystectomy(Not Applicable) - Augustine Starks MD Ordered Studies 04/13/21 23:59 gallbladder Urgent Hospital Course (1) Acute calculous cholecystitis: Patient was taken to operating room for laparoscopic cholecystectomy by Dr. Starks. Patient found to have gangrenous cholecystitis however no perforation or abscess. Patient tolerated procedure well and was transferred to recovery then to medical[facility] [place] for postop care. A zaira drain was placed given gangrenous inflammation of the gallbladder. Diet was advanced to regular diet, IV Zosyn was continued. IV morphine with PO Percocet as needed for pain. Activity as tolerated. And drain management as needed. POD # 1, afebrile, vitals stable, postop pain minimal and controlled, tolerated diet. Given the amount of inflammation and needing zaira drain patient was kept overnight for furt her observation. Labs repeated in am which showed no leukocytosis and t. bili and lfts wnl. [facility] to [facility] on POD # 2 in stable condition. Total Time Total Time Spent Total Time Spent (In Minutes): 30 Total Time Includes: Examination of the Patient, Discharge Planning, Medication Reconciliation and Communication With Other Providers Discharge Plan Discharge Items Patient Disposition: [facility] Reason For Visit: ACUTE CHOLECYSTITIS Discharge Diagnosis: Acute gangrenous cholecystitis Activity: Per Instructions section Non-emergency contact: Surgeon Call non-emergency contact if: you have any medication questions, your pain is not controlled, your pain is worsening, you have a fever, your temperature is above 101, your wound has increased redness, your wound has increased drainage and your wound pain has increased Follow-up/Referrals: Mary Trejo [Primary Care Provider] - Diet: Regular Addtl Attending Provider Instructions: Post-Surgical ~Discharge Instructions Activity Recommendations: - lifting limitation: (20 pounds for 2 weeks), - exercise/sex/sports limit: (nonstrenuous for 2 weeks), - driving or machine use limit: (none for 1 week or until pain free - Shower/bathe limit: (may shower beginning tomorrow) Diet: - Resume previous diet SPECIAL CARE INSTRUCTIONS: - May shower. Let water run over area and pat dry. - Surgical glue will fall off on its own - Drain site will heal on its own from inside out. Change dressing daily or as needed to keep clean and dry. - Call the surgeon's office with any questions or concerns - - (ex. temperature higher than 101 degrees F, excessive bleeding or pain). MEDICATIONS: - Resume previous medications unless instructed otherwise by your surgeon. - May alternate extra strength Tylenol and Ibuprofen as needed for mild pain -650 mg Tylenol every 6 hours as needed - Ibuprofen 600 mg every 6 hours as needed (take with food) - Recommend daily stool softener (Colace) while taking narcotic pain medication to prevent constipation or straining FOLLOW UP VISIT: - If not already scheduled, please call the office to schedule a two week follow-up appointment. Office number Pending Studies at Discharge: Yes (gallbladder pathology) Skilled Items Patient informed of condition?: Yes DNR: No Discharge Level of Care: Other Communicable Disease: No Discharge Prognosis: Stable Lines: None Urinary Catheter: No Medications and DC Order Prescriptions: Continued hydrochlorothiazide 12.5 mg Capsule 12.5 mg PO DAILY RF: 0 omeprazole 20 mg Tablet,Delayed Release (Dr/Ec) 20 mg PO DAILY RF: 0 Krames/Other Patient Handouts: Cholecystectomy Laparoscopic Dc Admission Data Admit Date/Time: 04/14/21 01:57 Attending Provider: Jolene De La Garza Admit Provider: Jolene De La Garza Primary Care Provider: Mary Trejo Other Providers: Neil RAHMAN Other Interventions: Discharge Summary Assessment (RN) Last Done: 04/16/21 09:10
== END 2021-04-16 13:31 ==
LOC: ED 22:27 → 3E 22:27